=== PATIENT | female | born 1960 | race Caucasian/White ===

== ENCOUNTER → 2017-02-28 | Outpatient (CLI) | payer MEDICARE ==
[~2017-02-28] MED LIST: ASP81CT PO; ASP81TEC PO; ATEN100T88 PO; ATOR80TA PO; CETI10TA17 PO; CYCL10TA9 PO; CYCL5TAB11 PO; ENAL10TA PO; FENO45CA PO; FLUT16SP22 NS; HYDR-3720 PO; INSU100I14 SQ; INSU100I16 SQ; METF-380 PO; NAPR250T34 PO; VENL75TA6 PO; VNL75T PO
--- NOTE | 2017-03-01 15:35 | Diagnostic Imaging Report ---
Bilateral screening mammogram The current study was also evaluated with a Computer Aided Detection (CAD) system. INDICATION: Screening. No current complaints stated on the questionnaire. COMPARISON: 02/19/2015. FINDINGS: The breasts are composed of heterogeneously dense parenchyma which may decrease mammographic sensitivity. There are scattered benign-appearing calcifications. Allowing for technique and positional differences, no suspicious change is seen. IMPRESSION: Dense breasts with no definite change. ACR BI-RADS Category 2: Benign findings. Result letter will be mailed to the patient. Note: At least 10% of breast cancer is not imaged by mammography. Dictated by: Dictated on workstation # [id number]
== END ==
LOC: RAD 09:47
PROVIDERS: ATTEND Nurse Practitioner Family
DX: Z12.31 Encounter for screening mammogram for malignant neoplasm of breast (principal)
CPT/HCPCS: 77067

== ENCOUNTER → 2017-04-13 | Outpatient (CLI) | payer MEDICARE ==
--- NOTE | 2017-04-13 09:47 | Diagnostic Imaging Report ---
PROCEDURE: US Gallbladder. TECHNIQUE: Multiple real-time grayscale images were obtained over the right upper quadrant in various projections. INDICATION: Right upper quadrant pain and nausea. FINDINGS: The visualized portions of the pancreas appear unremarkable. The liver is fairly homogeneous with no focal lesion seen. There is hepatopetal flow in the portal vein. The gallbladder demonstrates no stones or wall thickening. The CBD is 2 mm in caliber. The right kidney is 10 cm in length with no hydronephrosis or focal lesion. Sonographic Truong sign is reportedly negative. No fluid collection or ascites in the abdomen is seen. IMPRESSION: No gallstones or evidence of cholecystitis. Dictated by: Dictated on workstation # [id number]
== END ==
LOC: RAD 04-12 07:17
PROVIDERS: ATTEND Nurse Practitioner Family
DX: R10.11 Right upper quadrant pain (principal)
CPT/HCPCS: 76705

== ENCOUNTER → 2017-05-12 | Outpatient (CLI) | payer MEDICARE ==
[~2017-05-12] MED LIST changes: +CATHETER FLUSH 10 ML SYR IV PRN
--- NOTE | 2017-05-12 10:55 | Diagnostic Imaging Report ---
Indication: Right upper quadrant pain. Comparison: Gallbladder ultrasound 04/13/2017. Technique: Scintigraphic images were obtained following the intravenous administration of 5.12 mCi of technetium 99m labeled Choletec. Ejection fraction was calculated following the administration of a fatty meal. Region of interest was drawn around the gallbladder and a time/activity curve was generated. Discussion: Hepatic uptake and excretion are normal. There is normal appearance of activity within the gallbladder at 20 minutes and within the small bowel at 15 minutes. No retention activity seen within the common duct. Following the administration of a fatty meal, the gallbladder ejection fraction was calculated at 72%, normal. Impression: 1. Normal HIDA scan. 2. Normal gallbladder ejection fraction. 3. Patient reported no symptoms during the exam. Dictated by: Dictated on workstation # [id number]
== END ==
LOC: CARD 06:40
PROVIDERS: ATTEND Nurse Practitioner Family
DX: R10.11 Right upper quadrant pain (principal)
CPT/HCPCS: 78227

== ENCOUNTER 2018-01-01 07:13 | Outpatient (RCR) | payer MEDICARE ==
[~2018-01-01 07:13] MED LIST changes: -CATHETER FLUSH 10 ML SYR IV PRN
== END 2018-04-01 | disposition home or self-care (01) ==
LOC: CARD 07:13
PROVIDERS: ATTEND Nurse Practitioner Family
DX: R55 Syncope and collapse (principal)
CPT/HCPCS: 93225; 93226

== ENCOUNTER → 2018-10-02 | Outpatient (CLI) | payer MEDICARE ==
--- NOTE | 2018-10-02 12:44 | Diagnostic Imaging Report ---
INDICATION: Routine screening. Comparison is made with prior mammogram from 02/28/2017 and 02/19/2015. 2-D and 3-D bilateral screening mammography was performed with CAD. Both breasts are heterogeneously dense, limiting the sensitivity of mammography. The parenchymal pattern is stable. No mass or malignant appearing microcalcifications are seen. There are vascular calcifications bilaterally. The axillae are unremarkable. IMPRESSION: BI-RADS category one No mammographic features suspicious for malignancy are identified. ACR BI-RADS Category 1: Negative. Result letter will be mailed to the patient. Note: At least 10% of breast cancer is not imaged by mammography. Dictated by: Dictated on workstation # [id number]
== END ==
LOC: RAD 08:34
PROVIDERS: ATTEND Nurse Practitioner Family
DX: Z12.31 Encounter for screening mammogram for malignant neoplasm of breast (principal)
CPT/HCPCS: 77067

== ENCOUNTER 2019-05-02 09:55 | Outpatient (CLI) | payer MEDICARE ==
[~2019-05-02] VITALS: Ht 162.6 cm; Wt 73.9 kg
[2019-05-02] MEDS ORDERED: ATEN100T PO (10:23)
[2019-05-02] MEDS ORDERED: GABA-488 PO (10:23)
[2019-05-02] MEDS ORDERED: ATOR80TA76 PO (10:23)
[2019-05-02] MEDS ORDERED: INSU300I3 SQ (10:23)
[2019-05-02] MEDS ORDERED: FLUT9.9S NS (10:23)
[2019-05-02] MEDS ORDERED: CYCL5TAB PO (10:23)
[2019-05-02] MEDS ORDERED: DIAZ5TAB3 PO (10:23)
[2019-05-02] MEDS ORDERED: NAPR-1070 PO (10:23)
[2019-05-02] MEDS ORDERED: FENO160T12 PO (10:23)
[2019-05-02] MEDS ORDERED: DULA0.75 SQ (10:23)
[2019-05-02] MEDS ORDERED: HYDR12.56 PO (10:23)
[2019-05-02] MEDS ORDERED: VNL75T PO (10:23)
[2019-05-02] MEDS ORDERED: INSU100V16 SQ (10:23)
[2019-05-02] MEDS ORDERED: ENAL20TA PO (10:23)
[2019-05-02] MEDS ORDERED: METF-760 PO (10:23)
[2019-05-02] MEDS ORDERED: PANT40TA3 PO (10:23)
[2019-05-02] MEDS ORDERED: CETI10TA17 PO (10:23)
[2019-05-02] MEDS ORDERED: TIZA4CAP8 PO (10:23)
== END 2019-05-02 11:01 | disposition home or self-care (01) ==
LOC: PREOP 09:55
PROVIDERS: ATTEND Orthopaedic Surgery
DX: Z01.818 Encounter for other preprocedural examination (principal)
CPT/HCPCS: 87081

== ENCOUNTER 2019-05-08 07:15 | Day surgery (SDC) | payer MEDICARE ==
--- NOTE | 2019-04-28 16:54 | HISTORY AND PHYSICAL ---
DATE OF SERVICE: This will be for outpatient surgery on 05/08/2019 for right cubital tunnel release and right small finger and long finger trigger releases. HISTORY OF PRESENT ILLNESS: The patient is a 58-year-old female with complaints of right elbow pain with paresthesias into her small and ring fingers with catching and locking in her long finger and small finger. She has undergone injections in her fingers without relief. She reports pain in the medial aspect of her elbow, which radiates to her hand. She underwent cubital tunnel release on the left with good results. She reports it does awaken her at night at times and reports pain with repetitive activities. Due to progressive symptoms and failure to improve with conservative measures, the patient elected to proceed with surgical intervention. REVIEW OF SYSTEMS: No chest pain, no shortness of breath, no dysuria. PAST MEDICAL HISTORY: Headaches, depression, osteoarthritis, hyperlipidemia, hearing loss, asthma, hypertension, diabetes mellitus, back pain, reflux, bipolar disorder, heart disease. PAST SURGICAL HISTORY: Carpal tunnel, tonsillectomy, partial hysterectomy, heart catheterization, tubal ligation, cervical fusion, laminectomy with disk removal and left cubital tunnel release. FAMILY HISTORY: Significant for diabetes, heart disease. PRIMARY CARE PROVIDER: [facility]. MEDICATIONS: Atenolol, atorvastatin, Flonase, Zyrtec, gabapentin, Naprosyn, NovoLog, saline, diazepam, metformin, Effexor, Flexeril, enalapril, fenofibrate, pantoprazole, Trulicity, hydrochlorothiazide, Jardiance, tizanidine, Toujeo. ALLERGIES: CODEINE, SULFA. SOCIAL HISTORY: Tobacco use, the patient denies. Alcohol use, the patient denies. PHYSICAL EXAMINATION: GENERAL: The patient is well-developed, well-nourished, in no acute distress. HEENT: Normocephalic, atraumatic. Pupils are equal, round and reactive to light. Oropharynx is clear. NECK: Supple, no lymphadenopathy. LUNGS: Clear to auscultation bilaterally. HEART: Regular rate and rhythm. ABDOMEN: Soft, nontender, nondistended. EXTREMITIES: The patient has a positive elbow flexion test on the right with positive Tinel's at the cubital tunnel. She has decreased sensation in ulnar distribution. She active triggering in her long finger and small finger on her right hand with tenderness over A1 sky. IMPRESSION: 1. Right cubital tunnel syndrome. 2. Right long finger trigger finger. 3. Right small finger trigger finger. PLAN: 1. Right cubital tunnel release. 2. Right long finger trigger release. 3. Right small finger trigger release. The risks, benefits, options, ramifications and recovery were discussed at length with the patient. She understands and wishes to proceed. Job ID: [id number] DocumentID: [id number] Dictated Date: 04/28/2019 16:25:39 Branch Officer Date: 04/28/2019 16:53:26 Dictated By: DAPHNEY SARABIA MD
[2019-05-08] VITALS (11 sets, daily range): BP systolic 89–157; BP diastolic 51–77
[~2019-05-08] VITALS: Ht 162.6 cm; Wt 73.9 kg
[~2019-05-08 07:15] MED LIST changes: +ATEN100T PO; +ATOR80TA76 PO; +CYCL5TAB PO; +DIAZ5TAB3 PO; +DULA0.75 SQ; +ENAL20TA PO; +FENO160T12 PO; +FLUT9.9S NS; +GABA-488 PO; +HYDR12.56 PO; +INSU100V16 SQ; +INSU300I3 SQ; +METF-760 PO; +NAPR-1070 PO; +PANT40TA3 PO; +TIZA4CAP8 PO
[2019-05-08] MEDS ORDERED: BUP/EPI 0.5% 1:200,000 (MARCAINE) 10ML VIAL IJ ONE (07:20)
--- NOTE | 2019-05-08 07:25 | Progress Note-Pre Operative ---
Pre-Operative Progress Note H&P Reviewed The H&P was reviewed, patient examined and no changes noted. Date Seen by Provider: May 08, 2019 Time Seen by Provider: 07:25 Date H&P Reviewed: May 08, 2019 Time H&P Reviewed: 07:25 Pre-Operative Diagnosis: right cubital tunnel syndrome and right long and small trigger fingers DAPHNEY SARABIA MD May 08, 2019 07:25
--- NOTE | 2019-05-08 07:27 | Progress Note-Post Operative ---
Post-Operative Progess Note Surgeon (s)/Psychologist Research Assistant (s) Surgeon DAPHNEY SARABIA MD Psychologist Research Assistant: Darius Harper Pre-Operative Diagnosis right cubital tunnel syndrome and right long and small trigger fingers Post-Operative Diagnosis right cubital tunnel syndrome and right long and small trigger fingers Procedure & Operative Findings Date of Procedure 05/08/19 Procedure Performed/Findings right ulnar nerve transposition and long and small finger A1 sky releases Anesthesia Type GETA Estimated Blood Loss Estimated blood loss (mL): minimal Specimens/Packing Specimens Removed none Packing: none DAPHNEY SARABIA MD May 08, 2019 07:27
[2019-05-08] MEDS ORDERED: HYDROcodone/APAP 7.5 MG/325 MG (LORTAB, LORCET PLUS) TABLET PO PRN (07:30)
[2019-05-08] MEDS ORDERED: LACTATED RINGERS 1,000 ML IV PRN (07:39)
[2019-05-08] MEDS ORDERED: ceFAZolin INJECTION 1,000 MG ONE (07:42)
[2019-05-08] MEDS ORDERED: ONDANSETRON 4 MG/2 ML (SDV) Z0FRAN IV ONE (08:00)
[2019-05-08] MEDS ORDERED: FAMOTIDINE 20MG/2ML IV (PEPCID) IV ONE (08:00)
[2019-05-08] MEDS ORDERED: SCOPOLAMINE 1.5 MG (TRANSDERM-SCOP) PATCH ONE (08:09)
[2019-05-08] MEDS ORDERED: SCOPOLAMINE 1.5 MG (TRANSDERM-SCOP) PATCH TOP ONE (08:15)
[2019-05-08] MEDS ORDERED: MIDAZOLAM 2 MG/2 ML (VERSED) VIAL ONE (08:49)
[2019-05-08] MEDS ORDERED: fentaNYL INJECTION 100 MCG/2 ML AMP ONE (08:50)
[2019-05-08] MEDS ORDERED: LIDOCAINE 1% INJ 20 ML 20 ML VIAL ONE (08:59)
[2019-05-08] MEDS ORDERED: BUPIVACAINE 0.5% 30 ML (SENSORCAINE) VIAL ONE (08:59)
[2019-05-08] MEDS ORDERED: proPOfol 200 MG/20 ML (DIPRIVAN) VIAL IV ONE (10:01)
[2019-05-08] MEDS ORDERED: LIDOCAINE PF 2% 5 ML (XYLOCAINE) VIAL ONE (10:01)
[2019-05-08] MEDS ORDERED: SEVOFLURANE (ULTANE) 15 ML INHAL SOLN ONE (10:01)
[2019-05-08] MEDS ORDERED: ONDANSETRON 4 MG/2 ML (SDV) Z0FRAN ONE (10:01)
[2019-05-08] MEDS ORDERED: DEXAMETHASONE 10 MG/ML (DECADRON) 1 ML VIAL ONE (10:01)
[2019-05-08] MEDS ORDERED: MEPERIDINE (DEMEROL) INJ 50 MG/ML IVP ONE (10:45)
[2019-05-08] MEDS ORDERED: ONDANSETRON 4 MG/2 ML (SDV) Z0FRAN IVP PRN (10:45)
[2019-05-08] MEDS ORDERED: morphine INJ 10 MG/ML 1ML (SYR OR VIAL) IVP ONE (10:45)
[2019-05-08] MEDS ORDERED: fentaNYL INJECTION 100 MCG/2 ML AMP IVP ONE (10:45)
[2019-05-08] MEDS ORDERED: HYDR-3816 PO (11:46)
--- NOTE | 2019-05-08 13:05 | OPERATIVE REPORT ---
DATE OF SERVICE: 05/08/2019 PREOPERATIVE DIAGNOSES: 1. Right cubital tunnel syndrome. 2. Right long finger trigger finger. 3. Right small finger trigger finger. POSTOPERATIVE DIAGNOSES: 1. Right cubital tunnel syndrome. 2. Right long finger trigger finger. 3. Right small finger trigger finger. PROCEDURES: 1. Right ulnar nerve transposition. 2. Right long finger A1 sky release. 3. Right small finger A1 sky release. SURGEON: Macho Sarabia MD GROUP MANAGING DIRECTOR: Darius Harper, who assisted throughout the procedure and closed the incisions. ANESTHESIA: General endotracheal by Darius Morel CRNA. TOURNIQUET TIME: 17 minutes at 250 mmHg. ESTIMATED BLOOD LOSS: Minimal. DRAINS: None. COMPLICATIONS: None. POSTOPERATIVE PLAN: Routine protocol. The patient was transferred to the recovery room awake and in stable condition. STATEMENT OF MEDICAL NECESSITY: The patient is a 58-year-old right hand dominant female with complaints of right hand pain and paresthesias. She had positive Tinel's of carpal tunnel with positive elbow flexion test. She also complained of catching and locking in her small finger and long fingers in her right hand. She was tender over A1 pulleys and due to functional impairment and failure to improve with conservative measures, the patient elected to proceed with surgical intervention. DESCRIPTION OF PROCEDURE: After risks and benefits of procedure were discussed and questions were answered, an informed consent was signed and placed on chart. The operative site was confirmed in the preoperative holding area initialed by the surgeon. The patient was transferred to the operating room. After adequate levels of general endotracheal anesthetic were obtained, a timeout was called, confirming the operative site. The right upper extremity was prepped and draped in the usual sterile fashion with the arm elevated and tourniquet insufflated to 250 mmHg. An L-shaped incision was made posterior to the medial epicondyle. The underlying soft tissues were carefully dissected. The ulnar nerve was identified proximal to the medial epicondyle and dissected to 0.9 cm proximally. This was then dissected into the flexor/pronator mass. The elbow was taken through a range of motion and the nerve , therefore transposition was performed. A portion of the intermuscular septum was resected proximal to the medial epicondyle at the transposition site. The nerve was carefully transposed and a fascial sling was developed off the medial epicondyle. An 0 Vicryl was used to tack this to the deep subcutaneous tissue while carefully protecting the ulnar nerve. The ulnar nerve was intact at the conclusion of the procedure. The elbow was taken through range of motion and the repair was found to be stable with no tethering or impingement of the nerve noted. The wound was packed and incision was made over the A1 pulleys of the small finger and long finger of the right hand. The underlying soft tissues were bluntly dissected exposing the A1 pulleys, which were then incised longitudinally. The fingers were taken through range of motion with no catching or locking noted with full MCP, DIP and PIP flexion and extension throughout. Tourniquet was deflated for a total tourniquet time of 17 minutes. Pressure was used for hemostasis. Wounds were copiously irrigated, 2-0 Vicryl was used to reapproximate subcutaneous tissue at the elbow. The finger incisions were closed with 4-0 nylon in simple interrupted fashion and the elbow incision was closed with 4-0 nylon in running alternating horizontal mattress fashion. Incision was infiltrated with plain Marcaine and soft dressing was applied and the patient was transferred to the recovery room awake and in stable condition. Job ID: [id number] DocumentID: [id number] Dictated Date: 05/08/2019 10:40:18 Lubricating Specialist Date: 05/08/2019 13:05:07 Dictated By: MACHO SARABIA MD
== END 2019-05-08 12:55 | disposition home or self-care (01) ==
LOC: SDC 07:15
PROVIDERS: ATTEND Orthopaedic Surgery
DX: G56.21 Lesion of ulnar nerve, right upper limb (principal); M65.331 Trigger finger, right middle finger; M65.351 Trigger finger, right little finger; F32.9 Major depressive disorder, single episode, unspecified; M19.90 Unspecified osteoarthritis, unspecified site; E78.5 Hyperlipidemia, unspecified; J45.909 Unspecified asthma, uncomplicated; I10 Essential (primary) hypertension; K21.9 Gastro-esophageal reflux disease without esophagitis; E11.42 Type 2 diabetes mellitus with diabetic polyneuropathy; F43.10 Post-traumatic stress disorder, unspecified; Z90.710 Acquired absence of both cervix and uterus; Z83.3 Family history of diabetes mellitus; Z82.49 Family history of ischemic heart disease and other diseases of the circulatory system; Z79.4 Long term (current) use of insulin; Z79.1 Long term (current) use of non-steroidal anti-inflammatories (NSAID); Z79.899 Other long term (current) drug therapy; Z88.2 Allergy status to sulfonamides; Z88.5 Allergy status to narcotic agent
CPT/HCPCS: 82962

== ENCOUNTER → 2020-12-29 | Outpatient (CLI) | payer MEDICARE ==
[~2020-12-29] MED LIST changes: -DIAZ5TAB3 PO; +DIAZ5TAB49 PO; -ENAL20TA PO; +ENAL20TA16 PO; +HYDR-34 PO; -METF-760 PO; +METF-845 PO; -PANT40TA3 PO; +PANT40TA52 PO
--- NOTE | 2020-12-29 13:35 | Diagnostic Imaging Report ---
INDICATION: Routine screening. COMPARISON: 10/02/2018 and -02/28/2017. TECHNIQUE: 2D and 3D bilateral screening mammography was performed with CAD. FINDINGS: Both breasts are heterogeneously dense, limiting the sensitivity of mammography. There is a lobulated density in the inner left breast at approximately the 9 o'clock location, best seen on the CC view. This appears to be posteriorly located at the nipple line on the MLO view. Additional views are recommended. The right breast is unremarkable. No suspicious microcalcifications are seen. The axillae are unremarkable. IMPRESSION: Left breast density. Additional views are recommended for further evaluation. ACR BI-RADS Category 0: Incomplete. (Needs additional imaging evaluation). Result letter will be mailed to the patient. Note: At least 10% of breast cancer is not imaged by mammography. Dictated by: Dictated on workstation # [id number]
== END ==
LOC: RAD 09:56
PROVIDERS: ATTEND Nurse Practitioner Family
DX: Z12.31 Encounter for screening mammogram for malignant neoplasm of breast (principal)
CPT/HCPCS: 77063; 77067

== ENCOUNTER → 2021-01-07 | Outpatient (CLI) | payer MEDICARE ==
--- NOTE | 2021-01-07 13:17 | Diagnostic Imaging Report ---
Indication: Left breast density. Patient presents for additional views. Correlation is made with screening study from 12/29/2020. Unilateral left 2-D and 3-D diagnostic mammography was performed with CAD. A spot compression CC and MLO view as well as conventional 90 degree lateral views were performed. Additional views show persistent density in the medial left breast at posterior depth approximately 7 cm from the nipple. Further evaluation with ultrasound is recommended. No suspicious microcalcifications are seen. IMPRESSION: BI-RADS 0 Additional views show show persistent density in the medial left breast at posterior depth. Further evaluation with ultrasound is recommended and will be performed today. ACR BI-RADS Category 0: Incomplete. (Needs additional imaging evaluation). Result letter will be mailed to the patient. Note: At least 10% of breast cancer is not imaged by mammography. Dictated by: Dictated on workstation # [id number]
--- NOTE | 2021-01-07 14:25 | Diagnostic Imaging Report ---
INDICATION: Left breast density. COMPARISON: Correlation is made with the diagnostic mammogram from earlier this same day and the screening mammogram from 12/29/2020. TECHNIQUE: Sonographic interrogation of the upper and inner aspect of the left breast was performed. FINDINGS: There is a lobulated hypoechoic solid mass at the 10 o'clock location approximately 7 cm from the nipple measuring 15 mm x 12 mm x 16 mm. This most likely represents the density noted mammographically. This is concerning for a breast neoplasm. No other masses are seen. IMPRESSION: Lobulated solid mass at the 10 o'clock location of the left breast 7 cm from the nipple, corresponding to the mammographic density. This is concerning for a breast malignancy. Tissue sampling is recommended. This would be amenable to ultrasound-guided core biopsy. ACR BI-RADS Category 4: Suspicious abnormality. Dictated by: Dictated on workstation # [id number]
== END ==
LOC: RAD 12:46
PROVIDERS: ATTEND Nurse Practitioner Family
DX: N63.22 Unspecified lump in the left breast, upper inner quadrant (principal)
CPT/HCPCS: 76642; 77065; G0279

== ENCOUNTER → 2021-01-13 | Outpatient (CLI) | payer MEDICARE ==
[~2021-01-13] VITALS: Ht 162.6 cm; Wt 75.0 kg
[~2021-01-13] MED LIST changes: +LIDOCAINE 1% INJ 20 ML 20 ML VIAL INJ ONE
--- NOTE | 2021-01-13 14:41 | Diagnostic Imaging Report ---
INDICATION: Left breast mass. Patient presents for ultrasound-guided biopsy. DETAILS OF THE PROCEDURE: The patient was brought to the sonographic suite and placed on the table in the supine position. Ultrasound imaging of the left breast was performed to evaluate for an appropriate entry site. The left breast was then prepped and draped in the usual sterile fashion. A small amount of 1% lidocaine was utilized for local anesthesia. Three passes were made into the solid hypoechoic mass at the 10 o'clock location of the left breast 7 cm from the nipple utilizing a 14-gauge Achieve needle. A marker clip was then deployed. Hemostasis was obtained using manual compression. The patient tolerated the procedure well and was sent for a post procedure mammogram in satisfactory condition. IMPRESSION: Successful ultrasound guided core biopsy of the solid mass at the 10 o'clock location of the left breast 7 cm from the nipple. Pathology results are currently pending. Dictated by: Dictated on workstation # [id number]
--- NOTE | 2021-01-13 15:39 | Diagnostic Imaging Report ---
INDICATION: Left breast mass status post biopsy. FINDINGS: Unilateral left 2D CC, ML, and MLO mammography was performed status post ultrasound-guided core biopsy of the left breast mass. Images demonstrate a marker clip in the medial aspect of the left breast at posterior depth. IMPRESSION: Marker clip adjacent to the lesion in the medial aspect of the left breast at posterior depth status post ultrasound-guided biopsy. Dictated by: Dictated on workstation # [id number]
== END ==
LOC: RAD 12:30
PROVIDERS: ATTEND Nurse Practitioner Family
DX: N63.22 Unspecified lump in the left breast, upper inner quadrant (principal)
CPT/HCPCS: 19083; 77065; A4648; G0279

== ENCOUNTER 2022-06-03 09:41 | Outpatient (RCR) | payer MEDICARE ==
[~2022-06-03 09:41] MED LIST changes: -LIDOCAINE 1% INJ 20 ML 20 ML VIAL INJ ONE
[2022-06-03 10:22] LABS: BASOPHILS # (AUTO) 0.1 10^3/uL (0.0-0.1); BASOPHILS % (AUTO) 1 % (0-10); EOSINOPHILS # (AUTO) 0.3 10^3/uL (0.0-0.3); EOSINOPHILS % (AUTO) 4 % (0-10); HEMATOCRIT 38 % (35-52); HEMOGLOBIN 12.4 g/dL (11.5-16.0); LYMPHOCYTES # (AUTO) 1.3 10^3/uL (1.0-4.0); LYMPHOCYTES % (AUTO) 19 % (12-44); MEAN CORPUSCULAR HEMOGLOBIN 30 pg (25-34); MEAN CORPUSCULAR HGB CONC 32 g/dL (32-36); MEAN CORPUSCULAR VOLUME 93 fL (80-99); MEAN PLATELET VOLUME 9.5 fL (9.0-12.2); MONOCYTES # (AUTO) 0.6 10^3/uL (0.0-1.0); MONOCYTES % (AUTO) 9 % (0-12); NEUTROPHILS # (AUTO) 4.5 10^3/uL (1.8-7.8); NEUTROPHILS % (AUTO) 67 % (42-75); PLATELET COUNT 447 10^3/uL (130-400); WHITE BLOOD COUNT 6.7 10^3/uL (4.3-11.0)
[2022-06-03 10:38] LABS: ALBUMIN 4.4 GM/DL (3.2-4.5); BILIRUBIN,TOTAL 0.3 MG/DL (0.1-1.0); CALCIUM 10.1 MG/DL (8.5-10.1); CREATININE SERUM 1.2 MG/DL (0.60-1.30); POTASSIUM 4.2 MMOL/L (3.6-5.0); TOTAL PROTEIN 7.7 GM/DL (6.4-8.2)
== END 2022-06-17 | disposition home or self-care (01) ==
LOC: ONC 09:41
PROVIDERS: ATTEND Internal Medicine Hematology & Oncology
DX: C50.212 Malignant neoplasm of upper-inner quadrant of left female breast (principal); E11.9 Type 2 diabetes mellitus without complications; I10 Essential (primary) hypertension; Z86.59 Personal history of other mental and behavioral disorders; Z78.0 Asymptomatic menopausal state
CPT/HCPCS: 80053; 85025; 86300; G0463; 99204

== ENCOUNTER 2022-12-01 10:58 | Outpatient (RCR) | payer MEDICARE ==
[2022-12-01 11:18] LABS: BASOPHILS # (AUTO) 0.1 10^3/uL (0.0-0.1); BASOPHILS % (AUTO) 1 % (0-10); EOSINOPHILS # (AUTO) 0.2 10^3/uL (0.0-0.3); EOSINOPHILS % (AUTO) 4 % (0-10); HEMATOCRIT 38 % (35-52); HEMOGLOBIN 12.5 g/dL (11.5-16.0); LYMPHOCYTES # (AUTO) 1.5 10^3/uL (1.0-4.0); LYMPHOCYTES % (AUTO) 34 % (12-44); MEAN CORPUSCULAR HEMOGLOBIN 30 pg (25-34); MEAN CORPUSCULAR HGB CONC 33 g/dL (32-36); MEAN CORPUSCULAR VOLUME 92 fL (80-99); MEAN PLATELET VOLUME 9.3 fL (9.0-12.2); MONOCYTES # (AUTO) 0.3 10^3/uL (0.0-1.0); MONOCYTES % (AUTO) 8 % (0-12); NEUTROPHILS # (AUTO) 2.3 10^3/uL (1.8-7.8); NEUTROPHILS % (AUTO) 53 % (42-75); PLATELET COUNT 388 10^3/uL (130-400); WHITE BLOOD COUNT 4.3 10^3/uL (4.3-11.0)
[2022-12-01 11:39] LABS: ALBUMIN 4.3 GM/DL (3.2-4.5); BILIRUBIN,TOTAL 0.3 MG/DL (0.1-1.0); CALCIUM 9.9 MG/DL (8.5-10.1); CREATININE SERUM 0.95 MG/DL (0.60-1.30); POTASSIUM 4.3 MMOL/L (3.6-5.0); TOTAL PROTEIN 7.1 GM/DL (6.4-8.2)
== END 2022-12-16 | disposition home or self-care (01) ==
LOC: ONC 10:58
PROVIDERS: ATTEND Internal Medicine Hematology & Oncology
DX: D05.12 Intraductal carcinoma in situ of left breast (principal)
CPT/HCPCS: 36415; 80053; 85025

== ENCOUNTER 2023-01-11 05:32 | Outpatient (CLI) | payer MEDICARE ==
[~2023-01-11] VITALS: Ht 162.6 cm; Wt 65.9 kg
[2023-01-11] MEDS ORDERED: ANAS1TAB50 PO (13:13)
[2023-01-11] MEDS ORDERED: MAGN400T29 PO (13:13)
[2023-01-11] MEDS ORDERED: EMPA10TA PO (13:13)
[2023-01-11] MEDS ORDERED: INSU100I23 SQ ×2 (13:13)
[2023-01-11] MEDS ORDERED: LANS30CA PO (13:13)
[2023-01-11] MEDS ORDERED: CALC-794 PO (13:13)
== END 2023-01-11 13:42 | disposition home or self-care (01) ==
LOC: PREOP 05:32
PROVIDERS: ATTEND Orthopaedic Surgery
DX: Z01.818 Encounter for other preprocedural examination (principal); M65.312 Trigger thumb, left thumb; M65.311 Trigger thumb, right thumb

== ENCOUNTER 2023-01-18 05:55 | Day surgery (SDC) | payer MEDICARE ==
[2023-01-18] VITALS (7 sets, daily range): BP systolic 109–143; BP diastolic 38–61
[~2023-01-18] VITALS: Ht 162 cm; Wt 65.9 kg
[~2023-01-18 05:55] MED LIST changes: +ANAS1TAB50 PO; +CALC-794 PO; +EMPA10TA PO; +INSU100I23 SQ; +LANS30CA PO; +MAGN400T29 PO
[2023-01-18] MEDS ORDERED: ceFAZolin INJECTION 2,000 MG in NS (IVPB) 50 ML IV ONE (06:45)
[2023-01-18] MEDS ORDERED: LACTATED RINGERS 1,000 ML IV PRN (06:45)
[2023-01-18] MEDS ORDERED: ONDANSETRON 4 MG/2 ML (SDV) Z0FRAN IV ONE (07:00)
[2023-01-18] MEDS ORDERED: FAMOTIDINE 20MG/2ML IV (PEPCID) IV ONE (07:00)
[2023-01-18] MEDS ORDERED: proPOfol 200 MG/20 ML (DIPRIVAN) VIAL IV ONE (07:12)
[2023-01-18] MEDS ORDERED: ONDANSETRON 4 MG/2 ML (SDV) Z0FRAN ONE (07:12)
[2023-01-18] MEDS ORDERED: fentaNYL INJ 100 MCG/2 ML AMP ONE (07:12)
[2023-01-18] MEDS ORDERED: LIDOCAINE PF 2% 5 ML (XYLOCAINE) VIAL ONE (07:12)
[2023-01-18] MEDS ORDERED: SEVOFLURANE (ULTANE) 15 ML INHAL SOLN ONE ×2 (07:12→08:20)
[2023-01-18] MEDS ORDERED: MIDAZOLAM 2 MG/2 ML (VERSED) VIAL ONE (07:12)
[2023-01-18] MEDS ORDERED: LIDOCAINE 1% INJ 20 ML VIAL ONE (07:18)
[2023-01-18] MEDS ORDERED: BUPIVACAINE 0.5% 30 ML (SENSORCAINE) VIAL ONE (07:18)
[2023-01-18] MEDS ORDERED: LIDOCAINE 1% INJ 20 ML VIAL INJ ONE (07:25)
[2023-01-18] MEDS ORDERED: BUPIVACAINE 0.5% 30 ML (SENSORCAINE) VIAL INJ ONE (07:26)
[2023-01-18] MEDS ORDERED: PHENYLEPHRINE 100 MCG/ML 10 ML (ANESTHESIA) SYR ONE (07:57)
--- NOTE | 2023-01-18 15:52 | OPERATIVE REPORT ---
DATE OF SERVICE: 01/18/2023 PREOPERATIVE DIAGNOSES: 1. Right trigger thumb. 2. Right ring finger trigger finger. 3. Left trigger thumb. POSTOPERATIVE DIAGNOSES: 1. Right trigger thumb. 2. Right ring finger trigger finger. 3. Left trigger thumb. PROCEDURES: 1. Right thumb A1 sky release. 2. Right ring finger A1 sky release. 3. Left thumb A1 sky release. SURGEON: Macho Sarabia MD MANUFACTURING SOFTWARE ENGINEER: JACQUELINE Crawford, who assisted throughout the procedure and closed the incisions. ANESTHESIA: General endotracheal by Darius Morel CRNA. TOURNIQUET TIME: Approximately 5 minutes using an Esmarch on the right upper extremity and approximately 3 minutes using an Esmarch on the left upper extremity. ESTIMATED BLOOD LOSS: Minimal. DRAINS: None. COMPLICATIONS: None. POSTOPERATIVE PLAN: Early range of motion. The patient was transported to the recovery room awake and in stable condition. STATEMENT OF MEDICAL NECESSITY: The patient is a 62-year-old right hand dominant female with catching and locking in her bilateral thumbs and right ring finger. She has undergone treatment with injections in the past without relief. She complained of pain and activity limitations because of the thumbs and ring finger and due to progressive symptoms and failure to improve with conservative measures, the patient elected to proceed with surgical intervention. DESCRIPTION OF PROCEDURE: After risks and benefits of the procedure were discussed and questions were answered and informed consent was signed and placed on the chart, the operative sites were confirmed in the preoperative holding area, initialed by surgeon. The patient was then transported to the operating room and after adequate levels of general endotracheal anesthetic were obtained, a timeout was called, confirming the operative sites. The bilateral upper extremities were prepped and draped in the usual sterile fashion. Using an Esmarch as a tourniquet, the arm was elevated on the right and the Esmarch was utilized. A V-shaped incision was made over the MCP joint of the thumb volarly. The underlying soft tissues were carefully dissected. The neurovascular structures were identified and carefully protected throughout the procedure and intact at the conclusion of the procedure. The A1 sky was incised longitudinally. The thumb was then flexed with no catching or locking noted and no abnormalities of the flexor tendons were noted. An incision was then made longitudinally over the volar aspect of the right ring finger base at the A1 sky. The underlying soft tissues were bluntly dissected. The A1 sky was identified and sharply incised by pushing through with the scalpel blade. Flexor tendons were identified with no abnormalities noted. Full range of motion was noted with no catching or locking noted. The Esmarch was released. The wounds were copiously irrigated. Pressure was used for hemostasis. Incisions were closed with 4-0 nylon in simple interrupted fashion. A soft dressing was applied. An Esmarch was then used to exsanguinate the left upper extremity and then used as a tourniquet. A V-shaped incision was made over the MCP joint of the left thumb. The underlying soft tissues were carefully dissected. The A1 sky was identified and while carefully protecting neurovascular structures, A1 sky was identified and incised longitudinally. The thumb was taken through range of motion. Full range of motion was noted with no catching or locking noted. No abnormalities of the flexor tendons were noted. The tourniquet was deflated. Pressure was used for hemostasis. The wound was copiously irrigated and closed with 4-0 nylon in a simple interrupted fashion. Soft dressing was applied and the patient was transported to the recovery room awake and in stable condition. Job ID: [id number] DocumentID: [id number] Dictated Date: 01/18/2023 08:38:17 Hand Stapler Date: 01/18/2023 15:49:00 Dictated By: MACHO SARABIA MD
== END 2023-01-18 10:30 | disposition home or self-care (01) ==
LOC: SDC 05:55
PROVIDERS: ATTEND Orthopaedic Surgery
DX: M65.311 Trigger thumb, right thumb (principal); M65.341 Trigger finger, right ring finger; M65.312 Trigger thumb, left thumb; K21.9 Gastro-esophageal reflux disease without esophagitis
CPT/HCPCS: 87081

== ENCOUNTER → 2023-04-18 | Outpatient (CLI) | payer MEDICARE ==
[~2023-04-18] MED LIST changes: +ENAL-70 PO; -ENAL20TA16 PO
--- NOTE | 2023-04-19 11:04 | Diagnostic Imaging Report ---
Indication: Routine screening. Comparison is made with prior mammogram 03/23/2022 and 12/29/2020. 2-D and 3-D bilateral screening mammography was performed with CAD. The current study was also evaluated with a Computer Aided Detection (CAD) system. Both breasts are heterogeneously dense, limiting the sensitivity of mammography. Post therapeutic changes left breast appears stable. Bilateral breast calcifications are stable. No mass or malignant-appearing microcalcifications are seen. Axillae are unremarkable apart from surgical clips in the left axilla. IMPRESSION: BI-RADS Category 2 No mammographic features suspicious for malignancy are identified. ACR BI-RADS Category 2: Benign findings. Result letter will be mailed to the patient. Note: At least 10% of breast cancer is not imaged by mammography. Dictated by: Dictated on workstation # [id number]
== END ==
LOC: RAD 11:48
PROVIDERS: ATTEND Internal Medicine Hematology & Oncology
DX: Z12.31 Encounter for screening mammogram for malignant neoplasm of breast (principal); Z85.3 Personal history of malignant neoplasm of breast
CPT/HCPCS: 77063; 77067

== ENCOUNTER → 2023-05-02 | Outpatient (CLI) | payer MEDICARE ==
--- NOTE | 2023-05-02 14:37 | Diagnostic Imaging Report ---
INDICATION: Postmenopausal state. COMPARISON: None available. FINDINGS: AP Spine L1-L4: [BMD (g/cm2): 1.114] [T-Score: -0.7] [Z-Score: 0.7] [BMD Previous: NA] [BMD % Change: NA] LT Hip Neck: [BMD (g/cm2): 0.753] [T-Score: -2.0] [Z-Score: -0.7] LT Hip Total: [BMD (g/cm2):0.823] [T-Score:-1.5] [Z-Score: -0.4] [BMD Previous: NA] [BMD % Change: NA] RT Hip Neck: [BMD (g/cm2):0.760] [T-Score:-2.0] [Z-Score:-0.6] RT Hip Total: [BMD (g/cm2):0.826] [T-score:-1.4] [Z-Score:-0.4] [BMD Previous:NA] [BMD % Change:NA] *Indicates significant change from prior examination based on 95% confidence level. World Health Organization criteria for BMD interpretation classify patients as Normal (T-score at or above -1.0), Osteopenic (T-score between -1.0 and -2.5) or Osteoporotic (T-score at or below -2.5). LIMITATIONS AND MODIFICATION: None. FRACTURE RISK (FRAX SCORE): The ten year probability of (%): Major Osteoporotic Fracture: [10.9] Hip Fracture: [1.7] IMPRESSION: 1. Osteopenia (Low bone mass). 2. Baseline examination. 3. See below National Osteoporosis Foundation guidelines on when to potentially initiate pharmacologic therapy. Based on the National Osteoporosis Foundation Guidelines, pharmacologic treatment should be initiated in any of the following, unless clinical conditions suggest otherwise: * Any patient with prior fragility fracture of the hip or vertebrae. A spine fracture indicates 5X risk for subsequent spine fracture and 2X risk for subsequent hip fracture. * Osteoporosis (T-score <-2.5). * Postmenopausal women and men age 50 and older with low bone mass/osteopenia (T-score between -1.0 and -2.5) by DXA and 10-year major osteoporotic fracture greater than 20% or a 10-year probability of hip fracture greater than 3%. These fracture risks are supplied above in the FRAX score, if applicable. * Clinician judgement and/or patient preferences may indicate treatment for people with 10-year fracture probabilities above or below these levels. Dictated by: Dictated on workstation # [id number]
== END ==
LOC: RAD 08:22
PROVIDERS: ATTEND Nurse Practitioner Family
DX: M85.80 Other specified disorders of bone density and structure, unspecified site (principal); Z78.0 Asymptomatic menopausal state
CPT/HCPCS: 77080

== ENCOUNTER → 2023-07-24 | Outpatient (CLI) | payer MEDICARE ==
[~2023-07-24] MED LIST changes: +CATHETER FLUSH 10 ML SYR IVP PRN; +REGADENOSON 0.4 MG/5 ML SYR IV ONE
[2023-07-24 09:42] VITALS: BP 159/75
--- NOTE | 2023-07-24 12:25 | Cardiology Stress Test Report ---
Stress Test Report Date of Procedure/Referring: Date of Procedure: Jul 24, 2023 PCP Jesenia Hastings Admitting Physician Admitting Physician: Attending Physician: Rosalia Yang Aprn Baseline Heart Rate: 58 Baseline Blood Pressure: Blood Pressure Systolic: 159 Blood Pressure Diastolic: 75 Baseline Vitals Vital Signs Date Time Temp Pulse Resp B/P (MAP) Pulse Ox O2 Delivery O2 Flow Rate FiO2 07/24/23 09:42 58 159/75 (103) 99 Room Air Baseline EKG: Baseline EKG: NSR Summary After explaining the procedure to the patient, she signed a consent and then brought to the stress nuclear laboratory. Patient received 0.4 mg Lexiscan for stress test, ECG, heart rate and blood pressure were monitored continuously. Resting and stress dose of radio tracer were injected, imaging was acquired and reviewed in short axis, horizontal long axis and vertical long axis views. TID: 1.02 SSS: 4 SDS: 4 EF: 75 Patient tolerated Lexiscan well Breast attenuation with typical female pattern with no significant ischemia or infarction on SPECT images Normal left ventricular size, ejection fraction 75% CC LELO Bill MD Jul 24, 2023 12:25
== END ==
LOC: CARD 07-07 07:04
PROVIDERS: ATTEND Nurse Practitioner Family
DX: R07.9 Chest pain, unspecified (principal); I10 Essential (primary) hypertension
CPT/HCPCS: 78452; 93017; A9502